=== PATIENT | female | born 1985 | race Caucasian/White ===

== ENCOUNTER 2018-07-14 16:42 | Emergency (ER) | payer OTHER ==
[~2018-07-14] VITALS: Ht 157.5 cm; Wt 61.2 kg
[2018-07-14 17:50] LABS: ABSOLUTE NEUTROPHILS 10.1 thou/uL (1.4-8.2); BASOPHILS 0.4 % (0.0-2.0); EOSINOPHILS 0.4 % (0.0-3.0); HEMATOCRIT 35.2 % (37.0-47.0); LYMPHOCYTES 14.8 % (24.0-44.0); MCH 29.3 pg (26.0-34.0); MCHC 34.2 g/dL (28.0-37.0); MCV 85.9 fL (80.0-100.0); PLATELET COUNT 412 thou/uL (150-400); POLYS 79.4 % (36.0-66.0); RDW 12.9 % (10.5-14.5); WBC 12.7 thou/uL (4.0-11.0)
[2018-07-14 17:57] LABS: ANION GAP 12 mmol/L (7-16); BUN 12 mg/dL (7-18); CALCIUM 9.2 mg/dL (8.5-10.1); CHLORIDE 102 mmol/L (98-107); CO2 25 mmol/L (21-32); CREATININE 0.8 mg/dL (0.6-1.0); GLUCOSE 108 mg/dL (74-106); POTASSIUM 3.6 mmol/L (3.5-5.1); SODIUM 139 mmol/L (136-145)
[2018-07-14 18:08] LABS: ALBUMIN 3.8 g/dL (3.4-5.0); MAGNESIUM 1.6 mg/dL (1.8-2.4); SGOT 21 U/L (15-37); SGPT 38 U/L (30-65); TOTAL BILIRUBIN 0.1 mg/dL (<0.1-1.0); TROPONIN-I <0.06 ng/mL (<0.06)
[2018-07-14 18:20] LABS: URINE BILIRUBIN NEGATIVE (Negative); URINE BLOOD TRACE (Negative); URINE CLARITY CLEAR; URINE COLOR YELLOW; URINE GLUCOSE-RANDOM* NEGATIVE (Negative); URINE KETONES TRACE (Negative); URINE LEUKOCYTES-REFLEX NEGATIVE (Negative); URINE NITRITE-REFLEX NEGATIVE (Negative); URINE PROTEIN (DIPSTICK) TRACE (Negative); URINE UROBILINOGEN 0.2 E.U./dl (0.2-1.0)
[2018-07-14 19:22] VITALS: BP 105/72
[2018-07-14] MEDS ORDERED: ATIVAN0.5 MG PO (19:27)
--- NOTE | 2018-07-15 08:24 | EKG ---
[address] [address] ELECTROCARDIOGRAM REPORT Name: KENA OBREGON Room #: [facility]P [facility]ly[facility]ly[facility] [id number] ������������������ Admission: 07/14/18 ������������������ Attend Phys: Discharge: 07/14/18 ������������������ Date of : 89 Report #: [id number] ����������������������������������������������������������������� [id number] THIS REPORT FOR: //name// [facility] ED Test Date: 2018-07-14 Test Time: 17:27:04 Pat Name: KENA CARABALLO Department: Room: Gender: F [employer] Analyst: MARY : 1985 Requested By: Kaitlin Lucia Order Number: [id number] MD: Adolph Michaels Measurements Intervals [place] Rate: 88 P: 48 GA: 173 QRS: 9 QRSD: 95 T: 12 QT: 369 QTc: 447 Interpretive Statements Sinus rhythm Borderline T abnormalities, anterior leads No previous ECG available for comparison Electronically Signed On 07-15-2018 8:24:41 CDT by Adolph Michaels [email or web address] ��������������������������������������������� <ELECTRONICALLY SIGNED> ���������������������������������������� By: Adolph Michaels MD ��������������������������������������������� 07/15/18 0824 1727 1727 Adolph Michaels MD /EPI
== END 2018-07-14 19:32 | disposition home or self-care (01) ==
LOC: ER 16:42
PROVIDERS: Physician Assistant
DX: R55 Syncope and collapse (principal); F41.9 Anxiety disorder, unspecified